=== PATIENT | male | born 1955 | race African-American/Black ===

== ENCOUNTER 2018-06-30 21:47 | Emergency (ER) | payer OTHER ==
[2018-06-30] MEDS ORDERED: METHYLPREDNISOLONE INJ 125 MG/2 ML SDV IV ONE (22:03)
[2018-06-30] MEDS ORDERED: FAMOTIDINE INJ/PF 20 MG/2 ML SDV IV ONE (22:04)
--- NOTE | 2018-06-30 22:11 | ER Document Report ---
ED Allergic Reaction - General Mode of Arrival: Medic Information source: Patient TRAVEL OUTSIDE OF THE [place] IN LAST 30 DAYS: No <ANA EDMONDSON - Last Filed: 07/01/18 02:24> <MUNIRA REDDY - Last Filed: 07/01/18 02:31> - General Chief Complaint: Allergic Reaction Stated Complaint: MULTIPLE WASP STINGS Time Seen by Provider: 06/30/18 21:54 Notes: 62 y.o man with Afib presents to the ED with wasp stings to his bilateral hands and back with associated pain of onset around 6:30 this evening. Pt denies any other medical issues, denies any known allergies. (ANA EDMONDSON) - Related Data Allergies/Adverse Reactions: No Known Allergies Allergy (Unverified 09/06/15 04:03) Past Medical History - General Information source: Patient - Social History Smoking Status: Never Smoker Frequency of alcohol use: None Drug Abuse: None Family History: Reviewed & Not Pertinent - Past Medical History Cardiac Medical History: Reports: Hx Atrial Fibrillation - Immunizations Immunizations up to date: Yes Hx Diphtheria, Pertussis, Tetanus Vaccination: Yes <ANA EDMONDSON - Last Filed: 07/01/18 02:24> Review of Systems - Review of Systems Constitutional: No symptoms reported EENT: No symptoms reported Cardiovascular: No symptoms reported Respiratory: No symptoms reported Gastrointestinal: No symptoms reported Genitourinary: No symptoms reported Male Genitourinary: No symptoms reported Musculoskeletal: No symptoms reported Skin: See HPI, Other - stings to bilateral hands and back with pain Hematologic/Lymphatic: No symptoms reported Neurological/Psychological: No symptoms reported -: Yes All other systems reviewed and negative <ANA EDMONDSON - Last Filed: 07/01/18 02:24> Physical Exam <ANA EDMONDSON - Last Filed: 07/01/18 02:24> - Back Back: Tender, Other - swelling of upper back - Extremities General upper extremity: Nontender General lower extremity: Nontender Hand: Nontender, Swelling - bL <MUNIRA REDDY - Last Filed: 07/01/18 02:31> - Vital signs Vitals: Temp Pulse Resp BP Pulse Ox 98.6 F 106 H 20 150/106 H 98 06/30/18 21:54 06/30/18 21:54 06/30/18 21:54 06/30/18 21:54 06/30/18 21:54 - Notes Notes: Physical Exam: General: Alert, appears uncomfortable. HEENT: Normocephalic. Atraumatic. PERRL. Extraocular movements intact. Oropharynx clear, talking and swallowing. Neck: Supple. Non-tender. Respiratory: No respiratory distress. Clear and equal breath sounds bilaterally. Cardiovascular: Regular rate and rhythm. Abdominal: Normal Inspection. Non-tender. No distension. Normal Bowel Sounds. Back: No deformity or step off. Extremities: Moves all four extremities. Upper extremities: Normal ROM. Lower extremities: Normal inspection. No edema. Normal ROM. Neurological: Normal cognition. AAOx3. Normal speech. Psychological: Normal affect. Normal Mood. (ANA EDMONDSON) Course - Laboratory Result Diagrams: 06/30/18 22:09 06/30/18 22:09 <ANA EDMONDSON - Last Filed: 07/01/18 02:24> - Laboratory Result Diagrams: 06/30/18 22:09 06/30/18 22:09 <MUNIRA REDDY - Last Filed: 07/01/18 02:31> - Re-evaluation Re-evalutation: 07/01/18 02:30 Patient is a 8-year-old male who presents after being stung by wasps. Patient is complaining of pain and swelling where he was stung. Symptoms are consistent with staining/localized allergic reaction. Patient has a history of atrial fibrillation. No difficulty breathing, talking, or swallowing while here in the emergency department. Patient was given steroids, Benadryl and famotidine is feeling much better. He is to continue these medications at home and follow-up with his doctor. Return if any worsening or concerning symptoms. Oxygen saturation with ambulation was 96%. Feels better and grateful for care. (MUNIRA REDDY) - Vital Signs Vital signs: Temp Pulse Resp BP Pulse Ox 98.6 F 106 H 20 143/96 H 97 06/30/18 21:54 06/30/18 21:54 07/01/18 01:00 07/01/18 00:01 07/01/18 01:00 - Laboratory Laboratory results interpreted by me: 06/30/18 06/30/18 22:09 22:09 RBC 4.27 L Lymphocytes % 45.3 H Sodium 145.1 H BUN 21 H Discharge <ANA EDMONDOSN - Last Filed: 07/01/18 02:24> <MUNIRA REDDY - Last Filed: 07/01/18 02:31> - Discharge Clinical Impression: Wasp sting Qualifiers: Encounter type: initial encounter Injury intent: accidental or unintentional Qualified Code(s): T63.461A - Toxic effect of venom of wasps, accidental ( unintentional), initial encounter Allergic reaction Qualifiers: Encounter type: initial encounter Qualified Code(s): T78.40XA - Allergy, unspecified, initial encounter Condition: Stable Disposition: HOME, SELF-CARE Instructions: Acute Allergic Reaction ([facility]), Swollen Insect Bite or Sting ([facility]) Additional Instructions: Please take Benadryl and/or Claritin [id number] to help control symptoms. Please follow-up with your doctor tomorrow or early next week. Return if you have any further concerns or symptoms. Prescriptions: Famotidine [Acid Eye Glass Frame Polisher] 20 mg PO BID #14 tablet Prednisone 40 mg PO DAILY #6 tablet Referrals: EDGAR WALLACE MD [NO LOCAL MD] - Follow up in 3-5 days Scribe Attestation: 07/01/18 02:31 I personally performed the services described in the documentation, reviewed and edited the documentation which was dictated to the scribe in my presence, and it accurately records my words and actions. (MUNIRA REDDY) Scribe Documentation - Scribe Written by Louise:: Louise Adorno 06/30/18 586 acting as scribe for :: Nahum <ANA EDMONDSON - Last Filed: 07/01/18 02:24>
[2018-06-30 22:20] LABS: ABSOLUTE BASOPHILS # (AUTO) 0.1 10^3/uL (0.0-0.2); ABSOLUTE EOSINOPHILS # (AUTO) 0.1 10^3/uL (0.0-0.6); ABSOLUTE LYMPHOCYTES (AUTO) 3.6 10^3/uL (0.5-4.7); ABSOLUTE MONOCYTES (AUTO) 0.6 10^3/uL (0.1-1.4); ABSOLUTE NEUT (AUTO) 3.6 10^3/uL (1.7-8.2); BASOPHILS % (AUTO) 1.2 % (0-2); EOSINOPHILS % (AUTO) 1.3 % (0-6); HEMATOCRIT 38.8 % (37.9-51.0); HEMOGLOBIN 13.5 g/dL (13.5-17.0); LYMPHOCYTES % (AUTO) 45.3 % (13-45); MEAN CORPUSCULAR HEMOGLOBIN 31.7 pg (27.0-33.4); MEAN CORPUSCULAR HGB CONC 34.8 g/dL (32.0-36.0); MEAN CORPUSCULAR VOLUME 91 fl (80-97); MONOCYTES % (AUTO) 7.9 % (3-13); PLATELET COUNT 220 10^3/uL (150-450); RED BLOOD COUNT 4.27 10^6/uL (4.35-5.55); RED CELL DISTRIBUTION WIDTH 13.9 % (11.5-14.0); SEGMENTED NEUTROPHILS % (AUTO) 44.3 % (42-78); TOTAL CELLS COUNTED % (AUTO) 100 %
[2018-06-30 22:30] LABS: INTERNATIONAL RATION (INR) 1.01; PROTHROMBIN TIME 13.8 SEC (11.4-15.4)
[2018-06-30 22:31] LABS: PARTIAL THROMBOPLASTIN TIME 30.9 SEC (23.5-35.8)
[2018-06-30 22:37] LABS: ALANINE AMINOTRANSFERASE 41 U/L (21-72); ALBUMIN 4.6 g/dL (3.5-5.0); ALKALINE PHOSPHATASE 98 U/L (38-126); ANION GAP 13 (5-19); ASPARTATE AMINO TRANSFERASE 42 U/L (17-59); BILIRUBIN,DIRECT 0.3 mg/dL (0.0-0.4); BILIRUBIN,TOTAL 0.6 mg/dL (0.2-1.3); BLOOD UREA NITROGEN 21 mg/dL (7-20); CALCIUM 9.6 mg/dL (8.4-10.2); CARBON DIOXIDE 25 mmol/L (22-30); CHLORIDE 107 mmol/L (98-107); GLUCOSE 100 mg/dL (75-110); POTASSIUM 4.2 mmol/L (3.6-5.0); SODIUM 145.1 mmol/L (137-145); TOTAL PROTEIN 8.2 g/dL (6.3-8.2)
[2018-06-30] MEDS ORDERED: ONDANSETRON HCL INJ/PF 4 MG/2 ML SDV IV ONE (22:39)
[2018-06-30] MEDS ORDERED: MORPHINE SULFATE 10 MG/ML INJ IV ONE (22:39)
[2018-06-30] MEDS ORDERED: DIPHENHYDRAMINE HCL 50 MG/ML VIAL IV ONE (23:10)
[2018-07-01 01:15] VITALS: BP 143/96
[2018-07-01] MEDS ORDERED: DIPHENHYDRAMINE HCL 50 MG/ML VIAL IV ONE (01:17)
[2018-07-01] MEDS ORDERED: DIPHENHYDRAMINE HCL 50 MG/ML VIAL ONE (01:20)
== END 2018-07-01 01:24 | disposition home or self-care (01) ==
LOC: ER 21:47
DX: T63.461A Toxic effect of venom of wasps, accidental (unintentional), initial encounter (principal)
CPT/HCPCS: 96376; 99284; 96374; 96375; 36415; 85025; 85610; 85730; 80053; J1200 ×2; J2930; J2270; J2405; S0028